=== PATIENT | female | born 1975 | race African-American/Black ===

== ENCOUNTER 2017-11-01 14:04 | Emergency (ER) | payer OTHER ==
[~2017-11-01] VITALS: Ht 162.6 cm; Wt 99.1 kg
[~2017-11-01 14:04] MED LIST: AMOXICILLIN250 MG PO; EXCEDRIN MIGRA1 EAC3 PO; FIORICET,ESG1 TABLET PO; FLEXERIL10 MG PO; IRON325 M1 PO; MOBIC7.5 MG PO; MOTRIN400 MG PO; NAPROSYN500 MG PO; NOHOMEMEDS; ROBITUSSIN AC,T10 ML PO; ULTRAM50 MG PO
[2017-11-01 14:57] LABS: HEMATOCRIT 27.9 % (36.0-46.0); MCH 24.9 PG (29.0-34.0); MCHC 31.2 G/DL (30.0-36.0); MCV 79.9 FL (83-99); MEAN PLAT.VOLUME 10.6 uM^3 (9.5-12.4); PLATELET COUNT 212 K/uL (156-360); RBC DIS.WIDTH-CV 14.1 % (11.8-14.6); RBC DIS.WIDTH-SD 41.1 % (39-53); RED BLOOD COUNT 3.49 M/uL (3.80-5.20); WHITE BLOOD COUNT 5.4 K/uL (4.1-10.2)
[2017-11-01 15:11] LABS: CHLORIDE 108 mEq/L (99-109); POTASSIUM 3.9 mEq/L (3.7-5.4); SODIUM 141 mEq/L (136-147)
[2017-11-01 15:13] LABS: GLUCOSE 98 mg/dL (70-99)
[2017-11-01 15:15] LABS: ANION GAP 10 MEQ/L (2-14); TOTAL BILIRUBIN 0.1 mg/dL (0.0-1.0)
[2017-11-01 15:17] LABS: ALKALINE PHOSPHATASE 54 IU/L (3-129); GFR ESTIMATE (CALCULATED) > 59 mL/min/
[2017-11-01 15:18] LABS: UREA NITROGEN (BUN) 11 mg/dL (9-23)
[2017-11-01 18:10] LABS: QUANTITATIVE HCG < 4.0 MIU/ML
[2017-11-01 18:11] LABS: TROP-I INTERPRETATION NEGATIVE; TROPONIN-I < 0.01 ng/mL (0.0-0.30)
[2017-11-01 18:58] VITALS: BP 124/67
== END 2017-11-01 19:06 | disposition home or self-care (01) ==
LOC: EME 14:04
PROVIDERS: Physician Assistant
DX: D64.9 Anemia, unspecified (principal); F41.9 Anxiety disorder, unspecified; Z87.891 Personal history of nicotine dependence
CPT/HCPCS: 71020; 80053; 84484; 84702; 85027; 93005; 99281; 99284; J7030

== ENCOUNTER 2018-01-29 21:59 | Inpatient (IN) | payer OTHER ==
[~2018-01-29] VITALS: Ht 162.6 cm; Wt 92.1 kg
[~2018-01-29 21:59] MED LIST changes: +VITAMIN D-32000 UNI2 PO
[2018-01-30 05:55] VITALS: BP 111/77
[2018-01-30 13:39] VITALS: BP 124/86
[2018-01-30 15:30] LABS: HEMATOCRIT 31.8 % (36.0-46.0); HEMOGLOBIN 10.3 G/DL (11.9-15.5); MCV 76.8 FL (83-99)
[2018-01-30 19:25] VITALS: BP 119/75
[2018-01-30 23:50] VITALS: BP 115/69
[2018-01-31 03:52] VITALS: BP 121/59
[2018-01-31 07:22] VITALS: BP 104/65
[2018-01-31 08:04] LABS: HEMATOCRIT 27.1 % (36.0-46.0); HEMOGLOBIN 8.8 G/DL (11.9-15.5); MCH 24.4 PG (29.0-34.0); MCHC 32.5 G/DL (30.0-36.0); MCV 75.3 FL (83-99); PLATELET COUNT 217 K/uL (156-360); RBC DIS.WIDTH-CV 16.1 % (11.8-14.6); RBC DIS.WIDTH-SD 44.5 % (39-53); WHITE BLOOD COUNT 8.2 K/uL (4.1-10.2)
[2018-01-31 08:31] LABS: CHLORIDE 101 MEQ/L (99-109); CREATININE 0.6 MG/DL (0.6-1.3); GFR ESTIMATE (CALCULATED) > 59 mL/min/; GLUCOSE 101 mg/dL (70-99); POTASSIUM 3.8 MEQ/L (3.7-5.4); SODIUM 139 MEQ/L (136-147); UREA NITROGEN (BUN) 6 mg/dL (9-23)
[2018-01-31 11:28] VITALS: BP 121/80
[2018-01-31 15:18] VITALS: BP 105/61
[2018-01-31 19:42] VITALS: BP 117/73
[2018-01-31 23:34] VITALS: BP 116/67
[2018-02-01 04:01] VITALS: BP 121/65
[2018-02-01 07:15] VITALS: BP 108/73
[2018-02-01] MEDS ORDERED: ENDOCET 5-3251 EACH PO (12:42)
[2018-02-01] MEDS ORDERED: IBUPROFEN800 MG PO (12:42)
[2018-02-01] MEDS ORDERED: DOCUSATE SODIU100 MG PO (12:42)
== END 2018-02-01 14:20 | disposition home or self-care (01) | DRG 743 ==
LOC: ENRESERV 21:59 → 2SOUTH 01-30 05:09 → ENRESERV 01-30 11:18 → 2SOUTH 01-30 11:32 → 2EASTP 01-30 13:41 → 2SOUTH 01-30 15:02 → 2EASTP 02-01 14:20
PROVIDERS: Obstetrics & Gynecology
DX: D25.0 Submucous leiomyoma of uterus (principal); D25.1 Intramural leiomyoma of uterus; D25.2 Subserosal leiomyoma of uterus; N83.202 Unspecified ovarian cyst, left side; L29.9 Pruritus, unspecified; T40.2X5A Adverse effect of other opioids, initial encounter; D64.9 Anemia, unspecified; N92.0 Excessive and frequent menstruation with regular cycle; N94.6 Dysmenorrhea, unspecified; E66.9 Obesity, unspecified; Z68.34 Body mass index [BMI] 34.0-34.9, adult; Z87.891 Personal history of nicotine dependence
CPT/HCPCS: 80048; 85014; 85018; 85027; 88307; J0131; J0690; J1100; J1170; J1885; J2250; J2270; J2405; J2710; J3010; J7120

== ENCOUNTER 2018-03-15 17:56 | Emergency (ER) | payer OTHER ==
[~2018-03-15] VITALS: Ht 162.6 cm; Wt 96.2 kg
[~2018-03-15 17:56] MED LIST changes: +DOCUSATE SODIU100 MG PO; +ENDOCET 5-3251 EACH PO; +IBUPROFEN800 MG PO
[2018-03-15 18:53] LABS: ALBUMIN 4.4 g/dL (3.2-4.8)
[2018-03-15 18:54] LABS: CHLORIDE 105 mEq/L (99-109); POTASSIUM 3.7 mEq/L (3.7-5.4); SODIUM 140 mEq/L (136-147)
[2018-03-15 18:56] LABS: GLUCOSE 103 mg/dL (70-99); TOTAL PROTEIN 7.7 g/dL (6.4-8.3)
[2018-03-15 18:58] LABS: TOTAL BILIRUBIN 0.2 mg/dL (0.0-1.0)
[2018-03-15 18:59] LABS: ALKALINE PHOSPHATASE 65 IU/L (3-129)
[2018-03-15 19:00] LABS: CREATININE 0.8 mg/dL (0.6-1.3); GFR ESTIMATE (CALCULATED) > 59 mL/min/
[2018-03-15 19:01] LABS: AST (GOT) 15 IU/L (2-34); UREA NITROGEN (BUN) 14 mg/dL (9-23)
[2018-03-15 19:03] LABS: ALT (GPT) 18 IU/L (3-49)
[2018-03-15 19:09] LABS: HEMATOCRIT 30.6 % (36.0-46.0); HEMOGLOBIN 9.5 G/DL (11.9-15.5); MCH 22.4 PG (29.0-34.0); PLATELET COUNT 291 K/uL (156-360); RBC DIS.WIDTH-CV 15.9 % (11.8-14.6); RBC DIS.WIDTH-SD 41.1 % (39-53); RED BLOOD COUNT 4.25 M/uL (3.80-5.20); WHITE BLOOD COUNT 9.5 K/uL (4.1-10.2)
[2018-03-15 19:11] LABS: QUANTITATIVE HCG < 4.0 MIU/ML
[2018-03-15 22:09] LABS: APPEARANCE SL.HAZY ((CLEAR)); BILIRUBIN NEGATIVE; BLOOD NEGATIVE; COLOR YELLOW ((YELLOW)); GLUCOSE (STRIP) NEGATIVE; KETONES NEGATIVE; LEUKOCYTES LARGE; NITRITE NEGATIVE; PROTEIN (STRIP) NEGATIVE
[2018-03-15 22:17] LABS: BACTERIA RARE /HPF; EPITHELIAL CELLS 2+ /HPF; MUCUS TRACE /LPF; RED BLOOD CELLS 0-5 /HPF (0-5); UCUL ADDED? YES; WHITE BLOOD CELLS 15-20 /HPF (0-5)
[2018-03-15] MEDS ORDERED: KEFLEX500 MG PO (23:24)
[2018-03-15] MEDS ORDERED: NAPROSYN500 MG PO (23:24)
[2018-03-15 23:49] VITALS: BP 110/63
== END 2018-03-15 23:51 | disposition home or self-care (01) ==
LOC: EME 17:56
DX: N39.0 Urinary tract infection, site not specified (principal); N83.201 Unspecified ovarian cyst, right side; R10.31 Right lower quadrant pain; R10.13 Epigastric pain; Z98.890 Other specified postprocedural states; Z90.710 Acquired absence of both cervix and uterus
CPT/HCPCS: 74019; 76856; 80053; 81003; 84702; 85027; 87086; 93005; 93975; 99281; 99284

== ENCOUNTER 2018-07-10 19:40 | Emergency (ER) | payer OTHER ==
[~2018-07-10] VITALS: Ht 160 cm; Wt 98.9 kg
[~2018-07-10 19:40] MED LIST changes: +KEFLEX500 MG PO
[2018-07-10] MEDS ORDERED: FLEXERIL10 MG PO (21:33)
[2018-07-10] MEDS ORDERED: NAPROSYN500 MG PO (21:33)
[2018-07-10 22:03] VITALS: BP 95/75
== END 2018-07-10 22:09 | disposition home or self-care (01) ==
LOC: EME 19:40
DX: S16.1XXA Strain of muscle, fascia and tendon at neck level, initial encounter (principal); S39.012A Strain of muscle, fascia and tendon of lower back, initial encounter; V49.50XA Passenger injured in collision with unspecified motor vehicles in traffic accident, initial encounter; Y92.410 Unspecified street and highway as the place of occurrence of the external cause
CPT/HCPCS: 99281; 99284